=== PATIENT | male | born 1950 | race Caucasian/White ===

== ENCOUNTER 2022-04-15 13:00 | Emergency (ER) | payer OTHER ==
--- OUTSIDE RECORDS SUMMARY | 2022-04-15 13:02 | XMS REPORT | Continuity of Care Document ---
:[address] [facility] t Address [address] [place] [address] Care Team Providers Name Role Phone Ronn_R Attending Clinician Unavailable Ronn_R Admitting Clinician Unavailable Payers Payer Name Policy Type Policy Number Effective Date Expiration Date Carlos durham MEDICARE [place]: [id number] 2008 [employer] 00:00:00 Problems This patient has no known problems. Allergies, Adverse Reactions, Alerts This patient has no known allergies or adverse reactions. Medications This patient has no known medications. Procedures This patient has no known procedures. Encounters Start End Encounter Admission Attending Care Care Encounter Source Date/Time Date/Time Type Type Clinicians Facility Department ID 2020-06-17 2020-06-17 Outpatient Ronn_R [facility] [id number] [place] 02:58:00 02:58:00 [facility] 2017-06-09 2017-06-09 Outpatient Brown_R [facility] [id number] [place] 05:08:00 05:08:00 [facility] Results This patient has no known results.
--- NOTE | 2022-04-15 13:32 | ER ---
Nurse's Notes [facility] Name: Petar Renteria Age: 72 yrs Sex: Male : 1950 Arrival Date: 04/15/2022 Time: 13:02 Bed 6 Private MD: Diagnosis: Hypotension, unspecified;COPD/ Chronic obstructive pulmonary disease, unspecified;Sinus Tachycardia Presentation: 04/15 13:04 Chief complaint: EMS states: Family called 911 for home O2 not working, pt on home hb hospice care. Upon arrival BP 61/38, Hr 130, SpO2 86% on RA, BGL 140. BP 76/48, HR 100 after NS 400 mls to 20g RAC. SPO2 95% on 2LNC. Coronavirus screen: At this time, the client does not indicate any symptoms associated with coronavirus-19. Ebola Screen: No symptoms or risks identified at this time. Risk Assessment: Do you want to hurt yourself or someone else? Patient reports no desire to harm self or others. Onset of symptoms was April 15, 2022. 13:04 Method Of Arrival: EMS: [facility] hb 13:04 Acuity: MAEVE 2 hb 13:39 Initial Sepsis Screen: Does the patient meet any 2 criteria? Mean Arterial Pressure tw2 (MAP) < 65. HR > 90 bpm. Yes Does the patient have a suspected source of infection? No. Patient's initial sepsis screen is negative. Note pt a DNR. Historical: - Allergies: 13:07 Beta-Blockers (Beta-Adrenergic Blocking Agts); hb 13:07 gabapentin; hb 13:07 Cymbalta; hb 13:08 Thorazine; hb - PMHx: 13:07 chronic back pain; Dystonia; head and neck cancer; hb 13:08 COPD; hb - Immunization history:: Adult Immunizations. - Social history:: Smoking status: . Screenin:32 Abuse screen: Denies threats or abuse. Denies injuries from another. Nutritional hb screening: Had unintentional weight loss of 10 pounds or more. Tuberculosis screening: No symptoms or risk factors identified. Fall Risk Ambulatory Aid- Crutches/Cane/Walker (15 pts). Gait- Weak (10 pts.). Assessment: 13:32 General: Appears comfortable, slender, well groomed, malnourished, Behavior is calm, hb cooperative. Pain: Denies pain. Respiratory: No deficits noted. Airway is patent Respiratory effort is even, unlabored, Respiratory pattern is regular, the patient has mild shortness of breath. Vital Signs: 13:04 BP 76 / 50; Pulse 103; Resp 14; Temp 98.1(A); Pulse Ox 95% on 2 lpm NC; Weight 55.79 hb kg; Height 6 ft. 1 in. (185.42 cm); 16:18 BP 104 / 67; Pulse 90; Resp 16; Pulse Ox 95% ; jh6 13:04 Body Mass Index 16.23 (55.79 kg, 185.42 cm) hb ED Course: 13:02 Patient arrived in ED. bd 13:07 Triage completed. hb 13:08 Arm band placed on. hb 13:11 Fredy Trujillo DO is Attending Physician. ms3 13:32 Roya James, RN is Primary Nurse. hb 13:33 Bed in low position. Call light in reach. Side rails up X2. Adult w/ patient. hb 13:33 No provider procedures requiring assistance completed. hb Administered Medications: No medications were administered Medication: 13:40 VIS not applicable for this client. tw2 Outcome: 13:31 Discharge ordered by . ms3 16:21 Discharged to inpatient hospice jh6 16:22 Condition: unchanged 6 16:23 Patient left the ED. [facility] Signatures: Abbey Garcia Roya James, RN RN Damari Cardoza RN RN 2 Fredy Trujillo DO DO ms3 Kimberly Jimenez RN RN 6 Corrections: (The following items were deleted from the chart) 13:10 13:04 BP 76 / 50; Pulse 103bpm; Resp 14bpm; Pulse Ox 95% 2 lpm Nasal Cannula; hb hb
--- NOTE | 2022-04-15 13:32 | EDPHYS ---
Physician Documentation [facility] Name: Petar Renteria Age: 72 yrs Sex: Male : 1950 Arrival Date: 04/15/2022 Time: 13:02 Bed 6 Private MD: ED Physician Fredy Trujillo HPI: 04/15 13:11 This 72 yrs old Male presents to ER via EMS with complaints of oxygen concentrator ms3 broke. 13:11 79-year-old male with past medical history of chronic back pain, dystonia, head neck ms3 cancer, COPD presents via [facility] for hypoxia after his oxygen concentrator quit working overnight. Patient is currently on hospice with a med hospice. Patient's daughter states she is working with hospice to get the concentrator fixed. Patient states he does not have any new pain at this time. Patient's daughter states she would be more comfortable if patient was in inpatient hospice. Patient denies any alleviating or inciting factors. Patient wishes to be a DNR. Patient declines central venous line or vasopressors.. Historical: - Allergies: 13:07 Beta-Blockers (Beta-Adrenergic Blocking Agts); hb 13:07 gabapentin; hb 13:07 Cymbalta; hb 13:08 Thorazine; hb - PMHx: 13:07 chronic back pain; Dystonia; head and neck cancer; hb 13:08 COPD; hb - Immunization history:: Adult Immunizations. - Social history:: Smoking status: . ROS: 13:11 Constitutional: Negative for fever, and chills. Neck: Negative for injury, pain, and ms3 swelling, Cardiovascular: Negative for chest pain, and palpitations. Respiratory: Negative for shortness of breath, cough, wheezing, and pleuritic chest pain, Abdomen/GI: Negative for abdominal pain, nausea, vomiting, diarrhea, and constipation, MS/Extremity: Negative for injury and deformity, Skin: Negative for injury, rash, and discoloration. 13:11 All other systems are negative. Exam: 13:11 Constitutional: This is a well developed, well nourished patient who is awake, alert, ms3 and in no acute distress. Head/Face: Normocephalic, atraumatic. 13:11 Abdomen/GI: Soft, non-tender, with normal bowel sounds. No distension or tympany. No guarding or rebound. No evidence of tenderness throughout. Skin: Warm, dry with normal turgor. Normal color with no rashes, no lesions, and no evidence of cellulitis. Psych: Awake, alert, with orientation to person, place and time. Behavior, mood, and affect are within normal limits. 13:11 ENT: Mouth dry. 13:11 Cardiovascular: Rate: tachycardic, Rhythm: regular. Vital Signs: 13:04 BP 76 / 50; Pulse 103; Resp 14; Temp 98.1(A); Pulse Ox 95% on 2 lpm NC; Weight 55.79 hb kg; Height 6 ft. 1 in. (185.42 cm); 16:18 BP 104 / 67; Pulse 90; Resp 16; Pulse Ox 95% ; jh6 13:04 Body Mass Index 16.23 (55.79 kg, 185.42 cm) hb MDM: 13:11 Patient medically screened. ms3 19:55 Data reviewed: vital signs, nurses notes, and as a result, I will discharge patient. ms3 Counseling: I had a detailed discussion with the patient and/or guardian regarding: the historical points, exam findings, and any diagnostic results supporting the discharge/admit diagnosis, Process for moving into inpatient hospice. ED course: Discussed inpatient versus outpatient hospice with patient and his daughter. They elect for inpatient dialysis. Spoke with social work and patient will be placed in inpatient dialysis after discharge from the emergency department.. Administered Medications: No medications were administered Disposition: 19:57 Chart complete. ms3 Disposition Summary: 04/15/22 13:31 Discharge Ordered Location: Other ms3 Condition: Stable ms3 Diagnosis - Hypotension, unspecified ms3 - COPD/ Chronic obstructive pulmonary disease, unspecified ms3 - Sinus Tachycardia ms3 Forms: - Medication Reconciliation Form ms3 - Thank You Letter ms3 - Antibiotic Education ms3 - Prescription Opioid Use ms3 Signatures: Roya James, RN RN Damari Cardoza RN RN 2 Fredy Trujillo DO DO ms3
[2022-04-15 16:56] VITALS: TEMP 98.1; O2SAT 95
[2022-04-15 16:59] VITALS: BP 104/67
== END 2022-04-15 16:23 | disposition home or self-care (01) ==
LOC: ER 13:00
DX: I95.9 Hypotension, unspecified (principal); J44.9 Chronic obstructive pulmonary disease, unspecified; R00.0 Tachycardia, unspecified; Z88.8 Allergy status to other drugs, medicaments and biological substances; Z85.89 Personal history of malignant neoplasm of other organs and systems

== ENCOUNTER 2022-04-15 16:13 | Inpatient (IN) | payer OTHER ==
--- OUTSIDE RECORDS SUMMARY | 2022-04-15 16:17 | XMS REPORT | Continuity of Care Document ---
:1950 Author Organization [facility] Address [address] [place] [address] Dr. [address] [place] [id number] Care Team Providers Name Role Phone Ronn_R Attending Clinician Unavailable Ronn_R Admitting Clinician Unavailable Payers Payer Name Policy Type Policy Number Effective Date Expiration Date Carlos durham MEDICARE B-[place]: [id number] 2008 [employer] 00:00:00 Problems This patient has no known problems. Allergies, Adverse Reactions, Alerts This patient has no known allergies or adverse reactions. Medications This patient has no known medications. Procedures This patient has no known procedures. Encounters Start End Encounter Admission Attending Care Care Encounter Source Date/Time Date/Time Type Type Clinicians Facility Department ID 2020-06-17 2020-06-17 Outpatient Ronn_R [facility] [id number] [place] 02:58:00 02:58:00 [facility] 2017-06-09 2017-06-09 Outpatient Brown_R [facility] [id number] [place] 05:08:00 05:08:00 [facility] Results This patient has no known results.
[2022-04-15] MEDS ORDERED: MORPHINE 4 MG/ML SYR ONE (17:31)
[2022-04-15] MEDS ORDERED: HYOSCYAMINE SULF 0.125 MG TAB PO PRN (17:52)
[2022-04-15] MEDS ORDERED: ONDANSETRON 4 MG/2 ML VIAL IV PRN (17:52)
[2022-04-15] MEDS ORDERED: BISACODYL 10 MG RECTAL SUPP PR PRN (17:53)
[2022-04-15] MEDS ORDERED: ACETAMINOPHEN 650MG/RECT SUPP PR PRN (17:54)
[2022-04-15] MEDS: MORPHINE 4 MG/ML SYR IV PRN (18:00)
[2022-04-15] MEDS ORDERED: GLYCOPYRROLATE 0.2 MG/ML SYR IV PRN (18:40)
[2022-04-15] MEDS: HYDROCODONE/APAP 10/325 TAB PO PRN (20:43)
[2022-04-15] MEDS: clonazePAM 0.5 MG TAB PO SCH (20:43)
[2022-04-15] MEDS: MIRTAZAPINE 15 MG TAB PO SCH (20:43)
[2022-04-15] MEDS ORDERED: TRIHEXYPHENIDYL 2 MG TAB PO SCH (21:00)
[2022-04-16] MEDS: MORPHINE 4 MG/ML SYR IV PRN ×4 (03:50→21:44)
[2022-04-16] MEDS: clonazePAM 0.5 MG TAB PO SCH ×3 (08:25→20:04)
[2022-04-16] MEDS: HYDROCODONE/APAP 10/325 TAB PO PRN (12:21)
[2022-04-16] MEDS: MIRTAZAPINE 15 MG TAB PO SCH (20:04)
[2022-04-17] MEDS: MORPHINE 4 MG/ML SYR IV PRN ×4 (02:53→21:33)
[2022-04-17] MEDS: HYDROCODONE/APAP 10/325 TAB PO PRN ×2 (04:25→14:22)
[2022-04-17] MEDS: MIDAZOLAM HCL 2 MG/2 ML INJ IV PRN (04:32)
[2022-04-17] MEDS: clonazePAM 0.5 MG TAB PO SCH ×3 (08:07→21:29)
[2022-04-17 17:41] VITALS: BMI 16.0
[2022-04-17] MEDS: MIRTAZAPINE 15 MG TAB PO SCH (21:29)
[2022-04-18] MEDS: MORPHINE 4 MG/ML SYR IV PRN ×4 (08:06→21:45)
[2022-04-18] MEDS: clonazePAM 0.5 MG TAB PO SCH ×3 (08:06→20:27)
[2022-04-18] MEDS: MIRTAZAPINE 15 MG TAB PO SCH (20:28)
[2022-04-19] MEDS: HYDROCODONE/APAP 10/325 TAB PO PRN ×2 (00:19→16:46)
[2022-04-19] MEDS: MORPHINE 4 MG/ML SYR IV PRN ×5 (01:34→21:55)
[2022-04-19] MEDS: MIDAZOLAM HCL 2 MG/2 ML INJ IV PRN (02:42)
[2022-04-19] MEDS: clonazePAM 0.5 MG TAB PO SCH ×3 (09:01→21:55)
[2022-04-19] MEDS: MIRTAZAPINE 15 MG TAB PO SCH (21:55)
[2022-04-20] MEDS: MIDAZOLAM HCL 2 MG/2 ML INJ IV PRN (01:11)
[2022-04-20] MEDS: MORPHINE 4 MG/ML SYR IV PRN ×5 (04:32→20:20)
[2022-04-20] MEDS: clonazePAM 0.5 MG TAB PO SCH ×3 (08:00→20:21)
[2022-04-20] MEDS: MIRTAZAPINE 15 MG TAB PO SCH (20:23)
[2022-04-20 21:02] VITALS: BP 167/89; TEMP 97.4
[2022-04-20 21:31] VITALS: O2SAT 96
[2022-04-21] MEDS: MORPHINE 4 MG/ML SYR IV PRN ×3 (00:28→08:41)
[2022-04-21] MEDS: clonazePAM 0.5 MG TAB PO SCH (08:51)
== END 2022-04-21 10:29 | disposition hospice, home (50) | DRG 951 ==
LOC: ERHOLD 16:13 → 4TH 19:39
PROVIDERS: ADMIT Internal Medicine Geriatric Medicine; ATTEND Internal Medicine Geriatric Medicine
DX: Z51.5 Encounter for palliative care (principal); I95.9 Hypotension, unspecified; J44.9 Chronic obstructive pulmonary disease, unspecified
CPT/HCPCS: J2250

== ENCOUNTER 2022-08-05 10:47 | Emergency (ER) | payer OTHER ==
--- OUTSIDE RECORDS SUMMARY | 2022-08-05 10:50 | XMS REPORT | Continuity of Care Document ---
:1950 Author Organization [facility] Address [address] [place] [address] [address]. [address] [place] [id number] Care Team Providers Name Role Phone Ronn_R Attending Clinician Unavailable Ronn_R Admitting Clinician Unavailable Payers Payer Name Policy Type Policy Number Effective Date Expiration Date Carlos durham MEDICARE B-[place]: [id number] 2008 [employer] 00:00:00 Problems This patient has no known [...]
[2022-08-05] MEDS ORDERED: HYDROMORPHONE HCL 0.5 MG/0.5 ML INJ ONE ×3 (11:40→16:32)
[2022-08-05] MEDS ORDERED: ONDANSETRON 4 MG/2 ML VIAL ONE (11:40)
--- NOTE | 2022-08-05 14:37 | RAD REPORT ---
EXAM DESCRIPTION: [facility] Single View08/05/2022 2:26 pm CLINICAL HISTORY: Cough COMPARISON: 2020 FINDINGS: The lungs are markedly hyperaerated. Patchy opacities are present within right upper lobe and left lung base. Blunting left costophrenic sulcus is chronic probably pleural thickening The heart is normal size IMPRESSION: Marked COPD Patchy opacities right upper lobe and left lung base probably pneumonia
[2022-08-05 14:39] LABS: Absolute Lymphocytes (CBC) 0.7 K/uL (0.7-4.9); Hematocrit 37.5 % (39.6-49.0); Lymphocytes % 8.5 % (15.3-44.8); MCV 86.4 fL (80-100); MPV 8.7 fL (7.6-11.3); RBC Red Blood Cell Count 4.34 M/uL (4.33-5.43)
[2022-08-05 14:55] LABS: Albumin 3.2 g/dL (3.4-5.0); Bilirubin Total 0.7 mg/dL (0.2-1.0); Potassium 3.9 mmol/L (3.5-5.1); Protein, Total 7.2 g/dL (6.4-8.2); Troponin High Sensitivity 6.1 pg/mL (<58.9)
--- NOTE | 2022-08-05 16:47 | EDPHYS ---
Physician Documentation [facility] Name: Petar Renteria Age: 72 yrs Sex: Male : 1950 Arrival Date: 08/05/2022 Time: 11:00 Bed 14 Private MD: ED Physician Dash Stacy HPI: 08/05 11:20 This 72 yrs old Male presents to ER via EMS with complaints of chest pain. rt 11:23 The patient or guardian reports chest pain that is located primarily in the substernal rt area. Onset: chronic. The pain does not radiate. Associated signs and symptoms: The patient has no apparent associated signs or symptoms. The chest pain is described as aching. Duration: The patient or guardian reports a single episode, that is still ongoing. Modifying factors: The symptoms are alleviated by nothing. the symptoms are aggravated by nothing. Patient who was on hospice for adult failure to thrive, dystonia who currently takes morphine for his chronic chest pain presents to the ED with worsening of the chest pain. He states that the need better control of the patient's pain. They refusing EKG, labs at this time stating this is a known chronic issue. Denies other acute complaints at this time. Symptoms are moderate in severity, no other aggravating or alleviating factors.. Historical: - Allergies: 11:04 Beta-Blockers (Beta-Adrenergic Blocking Agts); ph 11:04 Cymbalta; ph 11:04 GABAPENTIN; ph 11:04 thorazine; ph - PMHx: 11:04 chronic back pain; COPD; Dystonia; head and neck cancer; ph - Immunization history:: Adult Immunizations unknown. - Family history:: not pertinent. - Social history:: Smoking status: Patient reports the use of cigarette tobacco products, unknown amount. ROS: 11:23 Constitutional: Negative for fever, chills, and weight loss, Eyes: Negative for injury, rt pain, redness, and discharge, ENT: Negative for injury, pain, and discharge, Respiratory: Negative for shortness of breath, cough, wheezing, and pleuritic chest pain, Abdomen/GI: Negative for abdominal pain, nausea, vomiting, diarrhea, and constipation, Back: Negative for injury and pain, MS/Extremity: Negative for injury and deformity, Skin: Negative for injury, rash, and discoloration, Neuro: Negative for headache, weakness, numbness, tingling, and seizure, Psych: Negative for depression, anxiety, suicide ideation, homicidal ideation, and hallucinations. 11:23 Cardiovascular: Positive for chest pain, Negative for edema. Exam: 11:23 Head/Face: Normocephalic, atraumatic. Eyes: Pupils equal round and reactive to light, rt extra-ocular motions intact. Lids and lashes normal. Conjunctiva and sclera are non-icteric and not injected. Cornea within normal limits. Periorbital areas with no swelling, redness, or edema. ENT: Nares patent. No nasal discharge, no septal abnormalities noted. Tympanic membranes are normal and external auditory canals are clear. Oropharynx with no redness, swelling, or masses, exudates, or evidence of obstruction, uvula midline. Mucous membranes moist. Neck: Trachea midline, no thyromegaly or masses palpated, and no cervical lymphadenopathy. Supple, full range of motion without nuchal rigidity, or vertebral point tenderness. No Meningismus. Chest/axilla: Normal chest wall appearance and motion. Nontender with no deformity. No lesions are appreciated. Cardiovascular: Regular rate and rhythm with a normal S1 and S2. No gallops, murmurs, or rubs. Normal PMI, no JVD. No pulse deficits. Respiratory: Lungs have equal breath sounds bilaterally, clear to auscultation and percussion. No rales, rhonchi or wheezes noted. No increased work of breathing, no retractions or nasal flaring. Abdomen/GI: Soft, non-tender, with normal bowel sounds. No distension or tympany. No guarding or rebound. No evidence of tenderness throughout. Skin: Warm, dry with normal turgor. Normal color with no rashes, no lesions, and no evidence of cellulitis. MS/ Extremity: Pulses equal, no cyanosis. Neurovascular intact. Full, normal range of motion. Neuro: Awake and alert, GCS 15, oriented to person, place, time, and situation. Cranial nerves II-XII grossly intact. Motor strength 5/5 in all extremities. Sensory grossly intact. Cerebellar exam normal. Normal gait. Psych: Awake, alert, with orientation to person, place and time. Behavior, mood, and affect are within normal limits. 11:23 Constitutional: The patient appears thin , Cachectic, chronically ill-appearing 16:55 ECG was reviewed by the Attending Physician. rt Vital Signs: 11:00 BP 145 / 85; Pulse 89; Resp 18; Temp 97.1(TE); Pulse Ox 98% on R/A; ph 11:54 BP 152 / 76; Pulse 113; Resp 35; Pulse Ox 100% ; bp 13:38 BP 145 / 80; Pulse 90; Resp 16; Pulse Ox 100% ; bp 15:30 BP 128 / 71; Pulse 79; Resp 16; Pulse Ox 100% ; bp 16:30 BP 154 / 94; Pulse 88; Resp 16; Pulse Ox 98% ; bp MDM: 11:02 Patient medically screened. rt 16:55 Differential diagnosis: abnormal EKG, acute myocardial infarction, chest wall pain, rt congestive heart failure cholecystitis, pneumonia, pneumothorax, pulmonary embolus. HEART Score: History: Slightly Suspicious (0), ECG: Non specific repolarization disturbance / LBTB / PM (1), Age: > or = 65 years (2), Risk Factors: > or = 3 Risk factors for atherosclerotic disease (2), Troponin: < or = 1 x Normal Limit (0), Total Score = 5. Data reviewed: vital signs, nurses notes, old medical records, lab test result(s), EKG, radiologic studies. ED course: Patient who is on hospice presents to the ED with a worsening chest pain. The patient initially declined laboratory, EKG evaluation. Subsequently, they agreed to have this done, reveals a infiltrate in the lungs, unclear if this is an acute finding, will cover regardless. Discussed the case with patient's hospice was talked to the patient's family multiple times. Initially wanted to have the patient sent to an inpatient hospice facility, they subsequently later changed her mind and wished to take the patient home. Patient to follow-up with this provider.. 08/05 14:03 Order name: CBC with Diff; Complete Time: 15:02 rt 08/05 14:03 Order name: CMP; Complete Time: 15:02 rt 08/05 13:34 Order name: Chest Single View XRAY; Complete Time: 14:40 rt 08/05 14:03 Order name: Troponin High Sensitivity; Complete Time: 15:02 rt 08/05 14:03 Order name: EKG; Complete Time: 14:04 rt 08/05 14:03 Order name: EKG - Nurse/Tech; Complete Time: 14:37 rt EC:55 Rate is 76 beats/min. Rhythm is regular, Normal Sinus Rhythm with No ectopy, Right rt bundle branch block. QRS [place] is Normal. MD interval is normal. QRS interval is normal. QT interval is normal. No Q waves. Administered Medications: 11:45 Drug: Dilaudid (HYDROmorphone) 0.5 mg Route: IVP; Site: right forearm; bp 14:24 Follow up: Response: No adverse reaction; Pain is decreased bp 11:45 Drug: Zofran (Ondansetron) 4 mg Route: IVP; Site: right forearm; bp 14:24 Follow up: Response: No adverse reaction bp 13:38 Drug: Dilaudid (HYDROmorphone) 0.5 mg Route: IVP; Site: right forearm; bp 14:24 Follow up: Response: No adverse reaction bp 16:34 Drug: Dilaudid (HYDROmorphone) 0.5 mg Route: IVP; Site: right forearm; bp Disposition Summary: 08/05/22 16:46 Discharge Ordered Location: Home rt Problem: an ongoing problem rt Symptoms: have improved rt Condition: Stable rt Diagnosis - Chest pain, unspecified rt - Adult failure to thrive rt Followup: rt - With: Private Physician - When: 1 - 2 days - Reason: Discharge Instructions: - Discharge Summary Sheet rt - Nonspecific Chest Pain, Adult rt Forms: - Medication Reconciliation Form rt - Thank You Letter rt - Antibiotic Education rt - Prescription Opioid Use rt Prescriptions: - Doxycycline Monohydrate 100 mg Oral Tablet - take 1 tablet by ORAL route every 12 hours for 10 days; 20 tablet; Refills: 0, rt Product Selection Permitted Signatures: Dispatcher [employer] Yesenia Field RN RN Karel Donald RN RN Dash Burger MD MD rt
--- NOTE | 2022-08-05 16:47 | ER ---
Nurse's Notes [facility] Name: Petar Renteria Age: 72 yrs Sex: Male : 1950 Arrival Date: 08/05/2022 Time: 11:00 Bed 14 Private MD: Diagnosis: Chest pain, unspecified;Adult failure to thrive Presentation: 08/05 11:00 Chief complaint: EMS states: Pt from home, is currently on hospice for end stage COPD ph and "weight loss", lives alone and family is concerned about him being there during the freeze this weekend. Pt c/o SOB upon arrival but was not on oxygen which he uses continuously at home. Coronavirus screen: Vaccine status: Patient reports receiving the 2nd dose of the covid vaccine. Ebola Screen: No symptoms or risks identified at this time. Initial Sepsis Screen: Does the patient meet any 2 criteria? No. Patient's initial sepsis screen is negative. Does the patient have a suspected source of infection? No. Patient's initial sepsis screen is negative. Risk Assessment: Do you want to hurt yourself or someone else? Patient reports no desire to harm self or others. Onset of symptoms was August 05, 2022. 11:00 Method Of Arrival: EMS: [facility] ph 11:00 Acuity: MAEVE 3 ph Triage Assessment: 11:04 General: Appears in no apparent distress. slender, Behavior is cooperative, appropriate ph for age. Neuro: Level of Consciousness is awake, alert, obeys commands, Oriented to person, place, time. Respiratory: Reports shortness of breath placed on oxygen at 3L/min Airway is patent Respiratory effort is even, unlabored. Derm: Skin is fragile, is thin, Skin is pink, warm \\T\\ dry. Historical: - Allergies: 11:04 Beta-Blockers (Beta-Adrenergic Blocking Agts); ph 11:04 Cymbalta; ph 11:04 GABAPENTIN; ph 11:04 thorazine; ph - PMHx: 11:04 chronic back pain; COPD; Dystonia; head and neck cancer; ph - Immunization history:: Adult Immunizations unknown. - Family history:: not pertinent. - Social history:: Smoking status: Patient reports the use of cigarette tobacco products, unknown amount. Screenin:00 [facility] ED Fall Risk Assessment (Adult) History of falling in the last 3 months, bp including since admission No falls in past 3 months (0 pts). Humpty Dumpty Scale Fall Assessment Tool (age< 18yrs) Age 13 years and above (1 pt). Abuse screen: Denies threats or abuse. Denies injuries from another. Nutritional screening: No deficits noted. Tuberculosis screening: No symptoms or risk factors identified. Fall Risk No fall in past 12 months (0 pts). No secondary diagnosis (0 pts). IV access (20 points). Ambulatory Aid- None/Bed Rest/Nurse Assist (0 pts). Gait- Weak (10 pts.). Mental Status- Oriented to own ability (0 pts). Total Abreu Fall Scale indicates Low Risk Score (25-44 pts). Fall prevention measures have been instituted. Side Rails Up X 2 Placed close to Nursing Station Frequent Obs/Assesments occuring As available Patient and Family Educated on Fall Prevention Program and strategies. Assessment: 11:00 General: SEE TRIAGE NOTE. bp 11:54 Reassessment: LEFT MESSAGE FOR AMINAH TRONCOSO WITH [facility] ([phone]) TO DISCUSS bp PAIN MEDICATION AND RESPITE CARE. 13:39 Reassessment: [facility] CONTACTED, AWAITING RESPONSE FOR DISPO. bp 15:45 Reassessment: No changes from previously documented assessment. Patient and/or family bp updated on plan of care and expected duration. Pain level reassessed. 16:37 Reassessment: FAMILY NOW REQUESTING DC HOME. NOTIFIED. bp Vital Signs: 11:00 BP 145 / 85; Pulse 89; Resp 18; Temp 97.1(TE); Pulse Ox 98% on R/A; ph 11:54 BP 152 / 76; Pulse 113; Resp 35; Pulse Ox 100% ; bp 13:38 BP 145 / 80; Pulse 90; Resp 16; Pulse Ox 100% ; bp 15:30 BP 128 / 71; Pulse 79; Resp 16; Pulse Ox 100% ; bp 16:30 BP 154 / 94; Pulse 88; Resp 16; Pulse Ox 98% ; bp ED Course: 11:00 Patient arrived in ED. ph 11:00 Dash Stacy MD is Attending Physician. rt 11:00 Patient has correct armband on for positive identification. Bed in low position. Call bp light in reach. Side rails up X2. Adult w/ patient. 11:03 Akash, Karel, RN is Primary Nurse. bp 11:04 Triage completed. ph 11:05 Arm band placed on Patient placed in an exam room. ph 11:51 Inserted saline lock: 20 gauge in right forearm, using aseptic technique. rs5 14:28 Chest Single View XRAY In Process Unspecified. EDMS Administered Medications: 11:45 Drug: Dilaudid (HYDROmorphone) 0.5 mg Route: IVP; Site: right forearm; bp 14:24 Follow up: Response: No adverse reaction; Pain is decreased bp 11:45 Drug: Zofran (Ondansetron) 4 mg Route: IVP; Site: right forearm; bp 14:24 Follow up: Response: No adverse reaction bp 13:38 Drug: Dilaudid (HYDROmorphone) 0.5 mg Route: IVP; Site: right forearm; bp 14:24 Follow up: Response: No adverse reaction bp 16:34 Drug: Dilaudid (HYDROmorphone) 0.5 mg Route: IVP; Site: right forearm; bp Medication: 11:00 VIS not applicable for this client. bp Outcome: 16:46 Discharge ordered by . rt 17:52 Patient left the ED. bp Signatures: Dispatcher [employer] EDMS Yesenia Gonzáles RN RN ph Karel Bustos, ABA RN bp Dash Stacy MD MD rt Norm Espinosa rs5
[2022-08-05 18:06] VITALS: TEMP 97.1
[2022-08-05 18:24] VITALS: BP 154/94; O2SAT 98
== END 2022-08-05 17:52 | disposition home or self-care (01) ==
LOC: ER 10:47
DX: R07.89 Other chest pain (principal); R62.7 Adult failure to thrive; J44.9 Chronic obstructive pulmonary disease, unspecified; Z72.0 Tobacco use; Z88.8 Allergy status to other drugs, medicaments and biological substances
CPT/HCPCS: 85025; 36415; 84484; 80053; 71045; J1170 ×3; J2405; 93005

== ENCOUNTER 2022-08-11 13:50 | Emergency (ER) | payer OTHER ==
--- OUTSIDE RECORDS SUMMARY | 2022-08-11 13:53 | XMS REPORT | Continuity of Care Document ---
:1950 Author Organization [facility] Address [address] [place] [address] Dr. [address] [place] [id number] Care Team Providers Name Role Phone Ronn_R Attending Clinician Unavailable Ronn_R Admitting Clinician Unavailable Payers Payer Name Policy Type Policy Number Effective Date Expiration Date Carlos durham MEDICARE [place]: [id number] 2008 [employer] 00:00:00 Problems This patient has no known [...]
[2022-08-11 14:34] LABS: Absolute Lymphocytes (CBC) 0.8 K/uL (0.7-4.9); Hematocrit 29.8 % (39.6-49.0); Lymphocytes % 5.6 % (15.3-44.8); MCV 85.6 fL (80-100); MPV 9.3 fL (7.6-11.3); RBC Red Blood Cell Count 3.48 M/uL (4.33-5.43)
[2022-08-11] MEDS ORDERED: TDAP (DIPHTH,PERTUSS(ACELL),TET VAC) 0.5 ML VIAL IMVAC ONE (14:45)
[2022-08-11] MEDS ORDERED: LIDOCAINE 1% MPF 5 ML VIAL ONE (14:45)
[2022-08-11] MEDS ORDERED: BUPIVACAINE 0.5% PF 10 ML VIAL ONE (14:45)
[2022-08-11] MEDS ORDERED: ONDANSETRON 4 MG/2 ML VIAL ONE (14:45)
[2022-08-11 14:46] LABS: Protime INR 1.3
[2022-08-11 14:49] LABS: SARS-CoV-2 Antigen Rapid Res Negative (Negative)
[2022-08-11 15:01] LABS: ALT/SGPT 13 U/L (16-61); AST/SGOT 15 U/L (15-37); Albumin 3.1 g/dL (3.4-5.0); Alkaline Phosphatase 76 U/L (45-117); BUN Blood Urea Nitrogen 12 mg/dL (7-18); Bicarbonate 30 mmol/L (21-32); Bilirubin Direct 0.2 mg/dL (0-0.2); Bilirubin Total 0.6 mg/dL (0.2-1.0); Glomerular Filtration Rate 64 ml/min (=/>90); Glucose Level 150 mg/dL (74-106); Potassium 3.8 mmol/L (3.5-5.1); Protein, Total 6.8 g/dL (6.4-8.2); Sodium Level 133 mmol/L (136-145)
[2022-08-11] MEDS ORDERED: NA CHLORIDE 0.9% 1,000 ML ONE (15:11)
[2022-08-11] MEDS ORDERED: NA CHLORIDE 0.9% 500 ML ONE (17:15)
--- NOTE | 2022-08-11 17:59 | EDPHYS ---
Physician Documentation [facility] Name: Petar Renteria Age: 72 yrs Sex: Male : 1950 Arrival Date: 08/11/2022 Time: 13:51 Bed 20 Private MD: ED Physician Colleen Jorge HPI: 08/11 14:01 This 72 yrs old Male presents to ER via EMS with complaints of Suicidal Ideation. pm1 14:01 The patient presents to the emergency department with a history of a suicide gesture, pm1 cut left forearm, suicide ideation. Onset: The symptoms/episode began/occurred this morning, at 07:00. 14:01 Past psychiatric history: the patient has not had a prior suicide gesture, the patient pm1 does not have a previous inpatient psychiatric history. Associated signs and symptoms: The patient has no apparent associated signs or symptoms, Pertinent positives; chronic pain that patient attributes to his dystonia, Pertinent negatives: abdominal pain, chest pain, shortness of breath. Severity of symptoms: in the emergency department the symptoms are unchanged. The patient has not experienced similar symptoms in the past. Patient seen in the ER 6 days ago and was diagnosed with pneumonia and is currently taking doxycycline BID. Patient cut his left forearm with the intention of trying to kill himself. Patient was tired of the insomnia that was related to his dystonia. Has had dystonia for multiple years. Patient is frustrated with not knowing the cause for his dystonia. Patient cut his left forearm around 7:00 this morning. Patient wrote a goodbye note. Patient was found by his daughter with him his left arm bleeding into a trash bag. Historical: - Allergies: 13:52 Beta-Blockers (Beta-Adrenergic Blocking Agts); ss 13:52 Cymbalta; ss 13:52 GABAPENTIN; ss 13:52 thorazine; ss - Home Meds: 16:46 morphine 60 mg Oral TR12 1 tab every 12 hours [Active]; morphine 20 mg/5 mL (4 mg/mL) jl7 Oral soln 5 mL every 4 hours [Active]; - PMHx: 13:52 chronic back pain; COPD; Dystonia; head and neck cancer; ss - Immunization history:: Last tetanus immunization: unknown. - Social history:: Smoking status: Patient reports the use of cigarette tobacco products, denies chronic smoking, but will smoke occasionally, Patient uses street drugs, marijuana, "rarely", Patient/guardian denies using alcohol. ROS: 14:01 Constitutional: Negative for fever, chills, and weight loss, Cardiovascular: Negative pm1 for chest pain, palpitations, and edema, Respiratory: Negative for shortness of breath, cough, wheezing, and pleuritic chest pain, Abdomen/GI: Negative for abdominal pain, nausea, vomiting, diarrhea, and constipation, Back: Negative for injury and pain, MS/Extremity: Negative for injury and deformity, Neuro: Negative for headache, weakness, numbness, tingling, and seizure. 14:01 Skin: Positive for laceration(s), of the palmar aspect of left forearm. 14:01 Psych: Positive for insomnia, suicide gesture, suicidal ideation. 14:01 All other systems are negative. Exam: 14:01 Constitutional: This is a well developed, well nourished patient who is awake, alert, pm1 and in no acute distress. Head/Face: Normocephalic, atraumatic. 14:01 Back: No spinal tenderness. No costovertebral tenderness. Full range of motion. 14:01 Eyes: Exam is negative for acute changes, Periorbital structures: no acute changes, Extraocular movements: no acute changes, Conjunctiva: no acute changes, no injection. 14:01 ENT: Exam is negative for acute changes, Mouth: no acute changes, Lips: normal, moist, Oral mucosa: normal, pink and intact, moist. 14:01 Cardiovascular: Rate: tachycardic, actual rate is 124 bpm, Rhythm: regular, Pulses: no pulse deficits are appreciated, Pulses are 2+ in left radial artery. 14:01 Respiratory: Exam negative for acute changes, respiratory distress, shortness of breath. 14:01 Abdomen/GI: Inspection: abdomen appears normal, Palpation: abdomen is soft and non-tender, in all quadrants. 14:01 Skin: Appearance: normal except for affected area, injury, laceration(s), the wound is approximately 7 cm(s), with a depth of 0.3 cm(s), of the palmar aspect of left forearm, that can be described as clean, no foreign body, without bleeding, 5 cm linear laceration with 2 shallow near perpendicular lacerations from central area of main laceration. 3 mm at the deepest for laceration. 14:01 Neuro: Exam negative for acute changes, Orientation: is normal, Mentation: is normal, Motor: moves all fours, Sensation: no obvious gross deficits. 14:01 Psych: Behavior/mood is cooperative, Affect is calm, Oriented to person, place, time, Delusions/hallucinations are not present. Vital Signs: 14:15 BP 103 / 70; Pulse 125; Resp 14; Pulse Ox 100% on 4 lpm NC; jl7 14:18 BP 101 / 68; Pulse 123; Resp 15; Temp 97.3; Pulse Ox 95% on 4 lpm NC; Weight 45.36 kg; jl7 Height 5 ft. 8 in. (172.72 cm); 15:30 BP 124 / 71; Pulse 97; Resp 15; Pulse Ox 92% on 4 lpm NC; jl7 16:15 BP 129 / 63; Pulse 107; Resp 15; Pulse Ox 92% on 4 lpm NC; jl7 17:58 BP 129 / 78; Pulse 89; Resp 15; Pulse Ox 100% on 2 lpm NC; jl7 19:15 BP 129 / 65; Pulse 95; Resp 18 S; Pulse Ox 100% on 2 lpm NC; ha1 20:15 BP 125 / 68; Pulse 97; Resp 18 S; Pulse Ox 100% on R/A; ha1 08/12 00:15 BP 125 / 67; Pulse 94; Resp 16 S; Pulse Ox 99% on 2 lpm NC; ha1 02:15 BP 130 / 69; Pulse 90; Resp 16 S; Pulse Ox 99% on 2 lpm NC; ha1 03:15 BP 135 / 70; Pulse 82; Resp 18; Pulse Ox 99% on 2 lpm NC; ha1 04:15 BP 130 / 64; Pulse 80; Resp 18; Pulse Ox 99% ; ha1 07:00 BP 120 / 64; Pulse 99; Resp 18 S; Pulse Ox 100% on R/A; ha1 10:06 BP 140 / 75; Pulse 76; Resp 12; Pulse Ox 100% on 2 lpm NC; mb9 12:19 BP 140 / 65; Pulse 89; Resp 12; Pulse Ox 100% 2 lpm ; mb9 14:36 BP 130 / 59; Pulse 86; Resp 13; Pulse Ox 100% on 2 lpm NC; mb9 15:21 BP 130 / 56; Pulse 81; Resp 13; Pulse Ox 100% on 2 lpm NC; mb9 17:39 BP 132 / 65; Pulse 97; Resp 16; Pulse Ox 100% on 2 lpm NC; mb9 19:20 BP 132 / 64; Pulse 82; Resp 16 S; Pulse Ox 100% on R/A; ha1 19:45 Pulse 77; Resp 18 S; Pulse Ox 100% on R/A; ha1 20:20 BP 131 / 60; Pulse 70; Resp 18 S; Pulse Ox 99% on R/A; ha1 08/13 00:20 BP 122 / 62; Pulse 77; Resp 16 S; Pulse Ox 100% on R/A; ha1 02:20 BP 128 / ???; Pulse 78; Resp 18 S; Pulse Ox 100% on R/A; ha1 03:20 BP 129 / 65; Pulse 77; Resp 18 S; Pulse Ox 100% on R/A; ha1 04:20 BP 128 / 64; Pulse 75; Resp 17 S; Pulse Ox 100% on R/A; ha1 05:00 BP 124 / 59; Pulse 81; Resp 18 S; Pulse Ox 100% on R/A; ha1 05:30 BP 122 / 62; Pulse 78; Resp 16; Pulse Ox 100% on R/A; ha1 08:00 BP 143 / 55; Pulse 69; Resp 18; Temp 98; Pulse Ox 100% on R/A; db 12:00 BP 111 / 61; Pulse 91; Resp 18; Pulse Ox 99% on 2 lpm NC; db 12:29 BP 111 / 61; Pulse 92; Resp 18; Pulse Ox 100% on 2 lpm NC; Pain 8/10; ld1 16:38 Pain 10/10; db 18:47 BP 110 / 68; Pulse 88; Resp 16; Temp 98; Pulse Ox 100% on R/A; db 08/11 14:18 Body Mass Index 15.20 (45.36 kg, 172.72 cm) jl7 Laceration: 08/11 16:41 Wound Repair of 7cm ( 2.8in ) subcutaneous laceration to dorsal aspect of left forearm. pm1 Irregularly shaped.. Distal neuro/vascular/tendon intact. Anesthesia: Local anesthetic administered with 5 mls of Lido/Marcaine. Wound prep: Extensive cleansing with hibiclenz by fl, Wound irrigation with saline by me, Wound explored extensively, Copious irrigation. Skin closed with 8 4-0 Prolene using simple sutures and sterile technique. Dressed with 4x4's. Patient tolerated well. MDM: 13:54 Patient medically screened. pm1 16:50 Counseling: I had a detailed discussion with the patient and/or guardian regarding: the pm1 historical points, exam findings, and any diagnostic results supporting the discharge/admit diagnosis, lab results, the need to transfer to another facility, [facility] does not immediately have the required specialist. 17:56 Data reviewed: vital signs. Data interpreted: Pulse oximetry: on 4L(s) per nasal pm1 canula, is 95 %. Interpretation: acceptable for history COPD. 08/12 11:06 ED course: Patient was evaluated by hospice nurse with plans for having the patient pm1 being discharged to a long-term with hospice care to provide 24-hour sitter coverage. Roger nurse, Ritika has been in contact with the patient's family to plan this disposition. I will contact [facility] to evaluate the patient to provide psychiatric care if patient is to be discharged to a long-term/hospice care.. 16:18 ED course: Patient was evaluated by long-term staff, [facility]. They came to pm1 evaluate the patient because they were contacted by [facility], hospice, with a plan to take the patient and provide 24 hour sitter coverage. Discussed patient psychiatric issue, suicidal ideation and gesture, with the staff and they report that psychiatric services is available at [facility] for the patient. 08/13 15:43 ED course: Pt to be discharged to long-term at [facility] with Hospice care arranged sd2 by Social Work. MARI has at time of discharge. Pt will have a 1:1 sitter for safety. . 08/11 13:58 Order name: Acetaminophen; Complete Time: 15:10 pm1 08/11 13:58 Order name: Basic Metabolic Panel; Complete Time: 15:10 pm1 08/11 13:58 Order name: CBC with Diff; Complete Time: 21:15 pm1 08/11 13:58 Order name: ETOH Level; Complete Time: 14:59 pm1 08/11 13:58 Order name: Hepatic Function; Complete Time: 15:10 pm1 08/11 13:58 Order name: PT-INR; Complete Time: 14:50 pm1 08/11 13:58 Order name: Ptt, Activated; Complete Time: 14:50 pm1 08/11 13:58 Order name: Salicylate; Complete Time: 15:01 pm1 08/11 13:58 Order name: Urine Drug Screen; Complete Time: 09:26 pm1 08/11 13:59 Order name: SARS RAPID; Complete Time: 14:50 pm1 08/11 19:05 Order name: Hemoglobin; Complete Time: 03:02 pm1 08/11 20:24 Order name: CBC Smear Scan; Complete Time: 21:15 EDMS 08/12 06:45 Order name: CBC with Diff; Complete Time: 08:07 rn 08/12 22:56 Order name: Urine Dipstick-Ancillary; Complete Time: 09:26 EDMS 08/11 13:58 Order name: EKG; Complete Time: 13:59 pm1 08/11 19:05 Order name: Chest Single View XRAY; Complete Time: 21:15 pm1 08/11 13:58 Order name: EKG - Nurse/Tech; Complete Time: 18:54 pm1 08/11 13:58 Order name: IV Saline Lock; Complete Time: 14:27 pm1 08/11 13:58 Order name: Labs collected and sent; Complete Time: 16:37 pm1 08/11 13:58 Order name: Suicide Precautions; Complete Time: 16:37 pm1 08/11 13:58 Order name: Suicide Screening ([place]); Complete Time: 18:54 pm1 08/11 13:58 Order name: Urine Dipstick-Ancillary (obtain specimen); Complete Time: 00:22 pm1 08/11 13:59 Order name: Dressing - Wound; Complete Time: 16:38 pm1 08/11 13:59 Order name: Gloves, Sterile; Complete Time: 15:12 pm1 08/11 13:59 Order name: Prolene, Sutures; Complete Time: 16:38 pm1 08/11 13:59 Order name: Setup Suture Tray; Complete Time: 15:12 pm1 08/11 16:02 Order name: Diet Finger Food; Complete Time: 16:02 kr3 08/12 06:40 Order name: Diet Finger Food; Complete Time: 06:41 ha1 08/13 07:21 Order name: EKG Electrocardiogram EDWY 08/13 12:41 Order name: Diet Regular; Complete Time: 12:41 ss EC/27 18:53 Rate is 100 beats/min. Rhythm is regular, Normal Sinus Rhythm with No ectopy. QRS [place] pm1 is Normal. [place] interval is normal. QRS interval is normal. QT interval is normal. No Q waves. T waves are Normal. No ST changes noted. Clinical impression: Normal ECG. Administered Medications: 15:01 CANCELLED (Physician Discretion): NS 0.9% 500 ml IV at bolus once pm1 15:12 Drug: NS 0.9% 1000 ml Route: IV; Rate: 1 bolus; Site: right forearm; jl7 16:30 Follow up: Response: No adverse reaction; IV Status: Completed infusion; IV Intake: jl7 1000ml 16:25 Drug: Bupivacaine (0.5 %) 10 ml {Note: administered by ERP.} Volume: 10 ml; Route: jl7 Infiltration; 18:34 Follow up: Response: No adverse reaction [facility] 16:25 Drug: Lidocaine (1 %) 5 ml {Note: administered by ERP.} Volume: 5 ml; Route: jl7 Infiltration; 18:34 Follow up: Response: No adverse reaction [facility] 17:01 Drug: Tetanus-Diphtheria Toxoid Adult 0.5 ml {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 Exp: jl7 05/09/2023. Lot #: [id number]. } Route: IM; Site: left deltoid; 17:21 Follow up: Response: No adverse reaction [facility] 17:21 Drug: NS 0.9% 500 ml Route: IV; Rate: bolus; Site: right forearm; jl7 18:34 Follow up: Response: No adverse reaction; IV Status: Completed infusion; IV Intake: jl7 500ml 08/12 14:24 Drug: morphine 1 mg Route: IVP; Infused Over: 2 mins; Site: right forearm; mb9 19:16 Follow up: Response: No adverse reaction mb9 19:24 Drug: morphine 1 mg Route: IVP; Infused Over: 2 mins; Site: right forearm; ha1 19:45 Follow up: Response: No adverse reaction; Pain is decreased; RASS: Alert and Calm (0) ha1 08/13 00:15 Drug: Zofran (Ondansetron) 4 mg Route: IVP; Site: right forearm; ha1 00:17 Drug: morphine 2 mg Route: IVP; Infused Over: 4 mins; Site: right forearm; ha1 00:42 Follow up: Response: No adverse reaction; Pain is decreased; RASS: Alert and Calm (0) ha1 04:59 Drug: morphine 2 mg Route: IVP; Infused Over: 4 mins; Site: right forearm; ha1 09:46 Follow up: Response: No adverse reaction db 09:46 Drug: morphine 2 mg Route: IVP; Infused Over: 4 mins; Site: right forearm; db 18:50 Follow up: Response: No adverse reaction db 12:29 Drug: morphine 2 mg Route: IVP; Infused Over: 4 mins; Site: right wrist; ld1 18:50 Follow up: Response: No adverse reaction db 16:38 Drug: morphine 15 mg Route: PO; db 18:50 Follow up: Response: No adverse reaction db Disposition Summary: 08/13/22 15:41 Discharge [facility]dered Location: [facility] sd2 Problem: new(08/13/22 15:41) sd2 Symptoms: are unchanged(08/13/22 15:41) sd2 Condition: Stable(08/13/22 15:41) sd2 Diagnosis - Suicidal ideations(08/13/22 15:41) sd2 - Laceration without foreign body of left forearm(08/13/22 15:41) sd2 Followup: sd2 - With: Private Physician - When: 2 - 3 days - Reason: Recheck today's complaints, Continuance of care, Re-evaluation by your physician Discharge Instructions: - Discharge Summary Sheet sd2 - Suicidal Feelings: How to Help Yourself sd2 - Helping Someone Who is Suicidal sd2 Forms: - Medication Reconciliation Form sd2 - Thank You Letter sd2 - Antibiotic Education sd2 - Prescription Opioid Use sd2 Addendum: 08/17/2022 18:30 STAFF ATTESTATION: The patient's history, exam findings, diagnostics and a summary of s d2 any interventions or procedures was reviewed in detail with the OSEAS. I personally interviewed and examined the patient, and I have reviewed and agree with the HPI and exam. My personal exam shows a chronically ill appearing male resting comfortably in NAD. See my ED course note for further details. I confirm the diagnosis as documented by the OSEAS. I have reviewed and agree with the care plan articulated in the disposition section. Alisia Steinberg MD. Signatures: Dispatcher [employer] EDMS Lee Patel MD MD rn Smirch, Shelby, RN RN ss Pérez Garibay, IT APPLICATION ADMINISTRATOR IT APPLICATION ADMINISTRATOR pm1 Willie Oseguera RN RN jl7 Sade Brandt RN RN ld1 Colleen Jorge MD MD sp3 Alisia Steinberg MD MD sd2 Janet Brown, RN RN ha1 Ritika Berman RN RN Brianne Dawson, RN RN mb9 Corrections: (The following items were deleted from the chart) 08/11 15:01 14:59 NS 0.9% 500 ml IV at bolus once ordered. pm1 pm1 16:49 14:01 The patient presents to the emergency department with a history of a suicide pm1 gesture, where the patient cut wrists, suicide ideation, pm1 08/13 15:41 08/11 17:58 MD pm1 sd2 08/13 15:41 08/11 17:58 Psych Facility pm1 sd2 08/13 15:41 08/11 17:58 Higher level of care pm1 sd2 08/13 15:41 08/11 17:58 Stable pm1 sd2 08/13 15:41 08/11 17:58 new pm1 sd2 08/13 15:41 08/11 17:58 have improved pm1 sd2 08/13 15:41 08/11 17:58 Laceration without foreign body of left forearm pm1 sd2 08/13 15:41 08/11 17:58 Suicidal ideations pm1 sd2
--- NOTE | 2022-08-11 17:59 | ER ---
Nurse's Notes [facility] Name: Petar Renteria Age: 72 yrs Sex: Male : 1950 Arrival Date: 08/11/2022 Time: 13:51 Bed 20 Private MD: Diagnosis: Suicidal ideations;Laceration without foreign body of left forearm Presentation: 08/11 14:18 Chief complaint: EMS states: Toned out for attempted suicide by cutting left FA at 0600 jl7 this morning; approximately 1/2 gallon blood loss; found by daughter. Coronavirus screen: Vaccine status: Patient reports receiving the 2nd dose of the covid vaccine. At this time, the client does not indicate any symptoms associated with coronavirus-19. Ebola Screen: No symptoms or risks identified at this time. Initial Sepsis Screen: Does the patient meet any 2 criteria? No. Patient's initial sepsis screen is negative. Does the patient have a suspected source of infection? No. Patient's initial sepsis screen is negative. Risk Assessment: Do you want to hurt yourself or someone else? Patient reports no desire to harm self or others. Onset of symptoms was August 11, 2022. Care prior to arrival: None. 14:18 Method Of Arrival: EMS: [facility] 7 14:18 Acuity: MAEVE 2 jl7 Triage Assessment: 14:18 General: Appears in no apparent distress. uncomfortable, cachectic, Behavior is jl7 cooperative, flat. Pain: Complains of pain in Neck, bilateral legs, all over Pain currently is 9 out of 10 on a pain scale. Neuro: Level of Consciousness is awake, alert, obeys commands, Oriented to person, place, time, situation. Cardiovascular: Patient's skin is warm and dry. Respiratory: Airway is patent Respiratory effort is even, unlabored, Respiratory pattern is regular, symmetrical. Derm: Skin is dry, Skin is pale, Skin temperature is warm. Historical: - Allergies: 13:52 Beta-Blockers (Beta-Adrenergic Blocking Agts); ss 13:52 Cymbalta; ss 13:52 GABAPENTIN; ss 13:52 thorazine; ss - Home Meds: 16:46 morphine 60 mg Oral TR12 1 tab every 12 hours [Active]; morphine 20 mg/5 mL (4 mg/mL) jl7 Oral soln 5 mL every 4 hours [Active]; - PMHx: 13:52 chronic back pain; COPD; Dystonia; head and neck cancer; ss - Immunization history:: Last tetanus immunization: unknown. - Social history:: Smoking status: Patient reports the use of cigarette tobacco products, denies chronic smoking, but will smoke occasionally, Patient uses street drugs, marijuana, "rarely", Patient/guardian denies using alcohol. Screenin:15 [facility] ED Fall Risk Assessment (Adult) History of falling in the last 3 months, jl7 including since admission No falls in past 3 months (0 pts) Confusion or Disorientation No (0 pts) Intoxicated or Sedated No (0 pts) Impaired Gait No (0 pts) Mobility Assist Device Used No (0 pt) Altered Elimination No (0 pt) Score/Fall Risk Level 0 - 2 = Low Risk. Nutritional screening: Had unintentional weight loss of 10 pounds or more. 16:14 Abuse screen: Denies injuries from another. Tuberculosis screening: Never had TB. ss Assessment: 02:15 Reassessment: eyes closed. Respiratory: Airway is patent Respiratory effort is even, ha1 unlabored, Respiratory pattern is regular, symmetrical. 03:15 Reassessment: eyes closed. ha1 14:00 Reassessment: EMS with suicide note on paper, written by pt, that reads "08-11-2022 : 3 jl7 AM : I've had way too much pain and 1 hour at the end is much better than 5 days of suffocation pain : love you all". 14:15 Reassessment: Pt reports unable to provide urine sample at this time. jl7 14:30 Reassessment: Pt A\\T\\Ox4, calm \\T\\ cooperative. Left arm with large amount of dried blood, jl 7 soaking with peroxide and NS. 15:00 Reassessment: Pt reports unable to provide urine sample at this time. jl7 16:14 Reassessment: CLAUDIA Ortez at bedside performing laceration care. ss 16:30 Reassessment: Pt reports unable to provide urine sample at this time. jl7 17:45 Reassessment: Pt laying in bed with eyes closed, respirations even and unlabored. jl7 18:15 Reassessment: Pt reports unable to provide urine sample at this time. jl7 18:56 Reassessment: Daughter, Lisa Spears, . jl7 19:15 General: Appears comfortable, Behavior is calm, cooperative. Pain: Denies pain. Neuro: ha1 Level of Consciousness is awake, alert, obeys commands, Oriented to person, place, time, situation. Cardiovascular: Patient's skin is warm and dry. Respiratory: Airway is patent Trachea midline Respiratory effort is even, unlabored, Respiratory pattern is regular, symmetrical. Derm: Skin Skin is dry, Skin is pale. Musculoskeletal: Injury Description: Laceration sustained to palmar aspect of left forearm is clean, 2.6 to 7.5 cm long, not bleeding. 20:15 Reassessment: Patient and/or family updated on plan of care and expected duration. Pain ha1 level reassessed. Patient is alert, oriented x 3, equal unlabored respirations, skin warm/dry/pink. Patient denies pain at this time. 21:15 Reassessment: Patient and/or family updated on plan of care and expected duration. Pain ha1 level reassessed. Patient is alert, oriented x 3, equal unlabored respirations, skin warm/dry/pink. Patient denies pain at this time. 22:15 Reassessment: Patient and/or family updated on plan of care and expected duration. Pain ha1 level reassessed. Patient is alert, oriented x 3, equal unlabored respirations, skin warm/dry/pink. Patient denies pain at this time. 23:15 Reassessment: Patient and/or family updated on plan of care and expected duration. Pain ha1 level reassessed. eyes closed. Patient denies pain at this time. 23:15 Respiratory: Respiratory effort is even, unlabored, Respiratory pattern is regular, ha1 symmetrical. 08/12 00:15 Reassessment: watching TV. ha1 00:15 Respiratory: Airway is patent Respiratory effort is even, unlabored, Respiratory ha1 pattern is regular, symmetrical. 01:15 Reassessment: eyes closed. ha1 02:15 Respiratory: Airway is patent Respiratory effort is even, unlabored, Respiratory ha1 pattern is regular, symmetrical. 03:15 Respiratory: Airway is patent Respiratory effort is even, unlabored, Respiratory ha1 pattern is regular, symmetrical. 04:15 Reassessment: Patient and/or family updated on plan of care and expected duration. Pain ph level reassessed. eyes closed. 04:15 Respiratory: Respiratory effort is even, unlabored, Respiratory pattern is regular, ha1 symmetrical. 05:15 Reassessment: Patient and/or family updated on plan of care and expected duration. Pain ph level reassessed. eyes closed. 05:15 Respiratory: Respiratory effort is even, unlabored, Respiratory pattern is regular, ph symmetrical. 06:15 Reassessment: Patient and/or family updated on plan of care and expected duration. Pain ha1 level reassessed. Patient is alert, oriented x 3, equal unlabored respirations, skin warm/dry/pink. 07:15 Reassessment: Pt AAOx4. Airway patent. Respirations are even and unlabored. Skin is mb9 pale, cool, and dry. Suicide precautions placed. Pt denies any suicidal ideation. 08:15 Reassessment: Pt AAOx4. Airway patent. Respirations are even and unlabored. Skin is mb9 pale, cool, and dry. Suicide precautions placed. Pt denies any suicidal ideation. Pt refused meal and fluid. 09:15 Reassessment: Pt AAOx4. Airway patent. Respirations are even and unlabored. Skin is mb9 pale, cool, and dry. Suicide precautions placed. Pt denies any suicidal ideation. 09:56 Reassessment: [facility] at bedside. mb9 10:15 Reassessment: Pt AAOx4. Airway patent. Respirations are even and unlabored. Skin is mb9 cool, pale and dry. Pt denies any suicidal ideation. Sitter present. Pt states he is in pain. PUMP INSTALLATION AND SERVICER, Pérez, notified. No new orders at this time. 11:15 Reassessment: Pt AAOx4. Airway patent. Respirations are even and unlabored. Skin is mb9 cool, pale and dry. Pt denies any suicidal ideation. Sitter present. Pt states he is in pain. PUMP INSTALLATION AND SERVICERPérez, notified. No new orders at this time. 11:50 Reassessment: [place] [facility] at bedside. mb9 12:15 Reassessment: Pt AAOx4. Airway patent. Respirations are even and unlabored. Skin is mb9 cool, pale and dry. Pt denies any suicidal ideation. Sitter present. Suicidal precautions in place. 13:15 Reassessment: Pt AAOx4. Airway patent. Respirations are even and unlabored. Skin is mb9 cool, pale and dry. Pt denies any suicidal ideation. Sitter present. Suicidal precautions in place. 14:15 Reassessment: Pt AAOx4. Airway patent. Respirations are even and unlabored. Skin is mb9 cool, pale and dry. Pt denies any suicidal ideation. Sitter present. Suicidal precautions in place. 15:15 Reassessment: pt currently sleeping. Airway is patent. Respirations are even and mb9 unlabored. Skin is cool, pale, and dry. Rhythm is regular. Sitter at bedside. 16:15 Reassessment: pt currently sleeping. Airway is patent. Respirations are even and mb9 unlabored. Skin is cool, pale, and dry. Rhythm is regular. 17:15 Reassessment: pt currently sleeping. Airway is patent. Respirations are even and mb9 unlabored. Skin is cool, pale, and dry. Rhythm is regular. Sitter at bedside. 18:15 Reassessment: Pt AAOx4. Airway patent. Respirations are even and unlabored. Skin is mb9 cool, pale and dry. Pt denies any suicidal ideation. Suicidal precautions in place. 19:00 Reassessment: Pt AAOx4. Airway patent. Respirations are even and unlabored. Skin is mb9 cool, pale and dry. Pt denies any suicidal ideation. Sitter present. Suicidal precautions in place. 19:00 Reassessment: Gave report to ABA Butts. mb9 19:20 General: Appears comfortable, Behavior is calm, cooperative. Pain: Complains of pain in ha1 generalized Pain currently is 7 out of 10 on a pain scale. Is continuous, Alleviated by medications. Neuro: Level of Consciousness is awake, alert, obeys commands, Oriented to person, place, time, situation. Cardiovascular: Patient's skin is warm and dry. Respiratory: Airway is patent Respiratory effort is even, unlabored, Respiratory pattern is regular, symmetrical. GI: No signs and/or symptoms were reported involving the gastrointestinal system. : No signs and/or symptoms were reported regarding the genitourinary system. Derm: Skin is pale. Musculoskeletal: Circulation, motion, and sensation intact. 20:20 Reassessment: Patient and/or family updated on plan of care and expected duration. Pain ha1 level reassessed. Patient is alert, oriented x 3, equal unlabored respirations, skin warm/dry/pink. 21:20 Reassessment: Patient and/or family updated on plan of care and expected duration. Pain ha1 level reassessed. Patient is alert, oriented x 3, equal unlabored respirations, skin warm/dry/pink. 22:20 Reassessment: Patient and/or family updated on plan of care and expected duration. Pain ha1 level reassessed. Patient is alert, oriented x 3, equal unlabored respirations, skin warm/dry/pink. 23:30 Reassessment: Patient and/or family updated on plan of care and expected duration. Pain ha1 level reassessed. Patient is alert, oriented x 3, equal unlabored respirations, skin warm/dry/pink. 08/13 01:30 Reassessment: eyes closed. Respiratory: Respiratory effort is even, unlabored, ha1 Respiratory pattern is regular, symmetrical. 02:30 Reassessment: eyes closed. Respiratory: Respiratory effort is even, unlabored, ha1 Respiratory pattern is regular, symmetrical. 03:30 Reassessment: eyes closed. Respiratory: Respiratory effort is even, unlabored, ha1 Respiratory pattern is regular, symmetrical. 04:50 Reassessment: Patient and/or family updated on plan of care and expected duration. Pain ha1 level reassessed. Patient is alert, oriented x 3, equal unlabored respirations, skin warm/dry/pink. pain 9/10. notified care provider. 07:40 Reassessment: Patient appears in no apparent distress at this time. Patient and/or db family updated on plan of care and expected duration. Pain level reassessed. Patient is alert, oriented x 3, equal unlabored respirations, skin warm/dry/pink. General: Appears in no apparent distress. comfortable, Behavior is calm, cooperative, appropriate for age, quiet. Neuro: No deficits noted. Level of Consciousness is awake, alert, obeys commands, Oriented to person, place, time, situation, Appropriate for age. 10:03 Reassessment: Patient appears in no apparent distress at this time. No changes from db previously documented assessment. Patient and/or family updated on plan of care and expected duration. Pain level reassessed. Patient is alert, oriented x 3, equal unlabored respirations, skin warm/dry/pink. 12:29 Reassessment: Pt c/o chest pain. Notified ERP. See MAR for orders. ld1 14:36 Reassessment: Patient appears in no apparent distress at this time. No changes from db previously documented assessment. Patient and/or family updated on plan of care and expected duration. Pain level reassessed. Patient is alert, oriented x 3, equal unlabored respirations, skin warm/dry/pink. Patient states symptoms have improved. 18:48 Reassessment: Patient appears in no apparent distress at this time. Patient and/or db family updated on plan of care and expected duration. Pain level reassessed. Patient is alert, oriented x 3, equal unlabored respirations, skin warm/dry/pink. PATIENT TRANSPORTED TO FACILITY BY FACILITY TRANSPORT. Psych: 08/11 14:00 [place] Suicide Severity Screening: In the past month, have you wished you were jl7 or wished you could go to sleep and not wake up? Patient responds "yes." "In the past month, have you actually had any thoughts of killing yourself?" Patient responds "yes." "In your lifetime, have you ever done anything, started to do anything, or prepared to do anything to end your life?" Patient responds "yes." Patient reports suicidal intent within 3 past months. Subjective: Patient's mood is hopeless, Delusions are denied, Hallucinations are denied Having thoughts of suicide. Plan for suicide is With attempt via laceration to left forearm. Objective: Patient is cooperative, Speech is normal, Affect is flat, Patient has mutilated themselves by Laceration to left forearm. Interventions: Searched person for dangerous items. Safety Checks: Door is open. Visitors are present. Patient uses marijuana "rarely". Commitment: Patient will be an involuntary commitment. 08/13 07:15 [place] Suicide Severity Screening: In the past month, have you wished you were db or wished you could go to sleep and not wake up? Patient responds "yes." "In the past month, have you actually had any thoughts of killing yourself?" Patient responds "yes." "In your lifetime, have you ever done anything, started to do anything, or prepared to do anything to end your life?" Patient responds "yes.". Subjective: Patient's mood is hopeless, Delusions are denied, Hallucinations are denied Having thoughts of suicide. Objective: Patient is cooperative, Speech is normal, Affect is appropriate. Interventions: Removed personal items and placed in bag. Patient placed in hospital gown. Safety Checks: Door is open. Patient uses marijuana. Vital Signs: 08/11 14:15 BP 103 / 70; Pulse 125; Resp 14; Pulse Ox 100% on 4 lpm NC; jl7 14:18 BP 101 / 68; Pulse 123; Resp 15; Temp 97.3; Pulse Ox 95% on 4 lpm NC; Weight 45.36 kg; jl7 Height 5 ft. 8 in. (172.72 cm); 15:30 BP 124 / 71; Pulse 97; Resp 15; Pulse Ox 92% on 4 lpm NC; jl7 16:15 BP 129 / 63; Pulse 107; Resp 15; Pulse Ox 92% on 4 lpm NC; jl7 17:58 BP 129 / 78; Pulse 89; Resp 15; Pulse Ox 100% on 2 lpm NC; jl7 19:15 BP 129 / 65; Pulse 95; Resp 18 S; Pulse Ox 100% on 2 lpm NC; ha1 20:15 BP 125 / 68; Pulse 97; Resp 18 S; Pulse Ox 100% on R/A; ha1 08/12 00:15 BP 125 / 67; Pulse 94; Resp 16 S; Pulse Ox 99% on 2 lpm NC; ha1 02:15 BP 130 / 69; Pulse 90; Resp 16 S; Pulse Ox 99% on 2 lpm NC; ha1 03:15 BP 135 / 70; Pulse 82; Resp 18; Pulse Ox 99% on 2 lpm NC; ha1 04:15 BP 130 / 64; Pulse 80; Resp 18; Pulse Ox 99% ; ha1 07:00 BP 120 / 64; Pulse 99; Resp 18 S; Pulse Ox 100% on R/A; ha1 10:06 BP 140 / 75; Pulse 76; Resp 12; Pulse Ox 100% on 2 lpm NC; mb9 12:19 BP 140 / 65; Pulse 89; Resp 12; Pulse Ox 100% 2 lpm ; mb9 14:36 BP 130 / 59; Pulse 86; Resp 13; Pulse Ox 100% on 2 lpm NC; mb9 15:21 BP 130 / 56; Pulse 81; Resp 13; Pulse Ox 100% on 2 lpm NC; mb9 17:39 BP 132 / 65; Pulse 97; Resp 16; Pulse Ox 100% on 2 lpm NC; mb9 19:20 BP 132 / 64; Pulse 82; Resp 16 S; Pulse Ox 100% on R/A; ha1 19:45 Pulse 77; Resp 18 S; Pulse Ox 100% on R/A; ha1 20:20 BP 131 / 60; Pulse 70; Resp 18 S; Pulse Ox 99% on R/A; ha1 08/13 00:20 BP 122 / 62; Pulse 77; Resp 16 S; Pulse Ox 100% on R/A; ha1 02:20 BP 128 / ???; Pulse 78; Resp 18 S; Pulse Ox 100% on R/A; ha1 03:20 BP 129 / 65; Pulse 77; Resp 18 S; Pulse Ox 100% on R/A; ha1 04:20 BP 128 / 64; Pulse 75; Resp 17 S; Pulse Ox 100% on R/A; ha1 05:00 BP 124 / 59; Pulse 81; Resp 18 S; Pulse Ox 100% on R/A; ha1 05:30 BP 122 / 62; Pulse 78; Resp 16; Pulse Ox 100% on R/A; ha1 08:00 BP 143 / 55; Pulse 69; Resp 18; Temp 98; Pulse Ox 100% on R/A; db 12:00 BP 111 / 61; Pulse 91; Resp 18; Pulse Ox 99% on 2 lpm NC; db 12:29 BP 111 / 61; Pulse 92; Resp 18; Pulse Ox 100% on 2 lpm NC; Pain 8/10; ld1 16:38 Pain 10/10; db 18:47 BP 110 / 68; Pulse 88; Resp 16; Temp 98; Pulse Ox 100% on R/A; db 08/11 14:18 Body Mass Index 15.20 (45.36 kg, 172.72 cm) jl7 ED Course: 08/11 13:51 Patient arrived in ED. ss 13:52 Arm band placed on right wrist. ss 13:53 Pérez Garibay NP is PHCP. pm1 13:54 Andrés Hollins MD is Attending Physician. pm1 14:00 Client placed on continuous cardiac and pulse oximetry monitoring. NIBP monitoring jl7 applied. 14:00 Warm blanket given. jl7 14:00 Initial lab(s) drawn, by or, sent to lab. Inserted saline lock: 20 gauge in right jl7 forearm, using aseptic technique. Blood collected. 14:18 Oseguera, Jahala, RN is Primary Nurse. jl7 14:24 Triage completed. jl7 16:17 Patient has correct armband on for positive identification. Bed in low position. Call ss light in reach. Side rails up X 1. 16:30 Assist provider with laceration repair on palmar aspect of left forearm that was jl7 between 2.6 to 7.5 cm using sutures. Set up tray. Performed by Pérez Garibay PUMP INSTALLATION AND SERVICER Dressed with 4X4s, Neosporin, Patient tolerated well. 19:15 Safety Checks: Personal items have been removed. Sitter present at this time. ha1 19:15 No apparent distress. transfer approval from receiving facility. ha1 19:15 Noise minimized. ha1 19:22 Chest Single View XRAY In Process Unspecified. EDMS 08/12 10:38 paged out the screener hand stonecutter from the [facility]. eb 20:55 Attending Physician role handed off by Andrés Hollins MD sp3 20:55 Colleen Jorge MD is Attending Physician. sp3 08/13 18:49 IV discontinued, intact, bleeding controlled, No redness/swelling at site. db Administered Medications: 08/11 15:01 CANCELLED (Physician Discretion): NS 0.9% 500 ml IV at bolus once pm1 15:12 Drug: NS 0.9% 1000 ml Route: IV; Rate: 1 bolus; Site: right forearm; jl7 16:30 Follow up: Response: No adverse reaction; IV Status: Completed infusion; IV Intake: jl7 1000ml 16:25 Drug: Bupivacaine (0.5 %) 10 ml {Note: administered by ERP.} Volume: 10 ml; Route: jl7 Infiltration; 18:34 Follow up: Response: No adverse reaction jl7 16:25 Drug: Lidocaine (1 %) 5 ml {Note: administered by ERP.} Volume: 5 ml; Route: jl7 Infiltration; 18:34 Follow up: Response: No adverse reaction jl7 17:01 Drug: Tetanus-Diphtheria Toxoid Adult 0.5 ml {Laundry Or Dry Cleaners 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 Exp: jl7 05/09/2023. Lot #: [id number]. } Route: IM; Site: left deltoid; 17:21 Follow up: Response: No adverse reaction jl7 17:21 Drug: NS 0.9% 500 ml Route: IV; Rate: bolus; Site: right forearm; jl7 18:34 Follow up: Response: No adverse reaction; IV Status: Completed infusion; IV Intake: jl7 500ml 08/12 14:24 Drug: morphine 1 mg Route: IVP; Infused Over: 2 mins; Site: right forearm; mb9 19:16 Follow up: Response: No adverse reaction mb9 19:24 Drug: morphine 1 mg Route: IVP; Infused Over: 2 mins; Site: right forearm; ha1 19:45 Follow up: Response: No adverse reaction; Pain is decreased; RASS: Alert and Calm (0) ha1 08/13 00:15 Drug: Zofran (Ondansetron) 4 mg Route: IVP; Site: right forearm; ha1 00:17 Drug: morphine 2 mg Route: IVP; Infused Over: 4 mins; Site: right forearm; ha1 00:42 Follow up: Response: No adverse reaction; Pain is decreased; RASS: Alert and Calm (0) ha1 04:59 Drug: morphine 2 mg Route: IVP; Infused Over: 4 mins; Site: right forearm; ha1 09:46 Follow up: Response: No adverse reaction db 09:46 Drug: morphine 2 mg Route: IVP; Infused Over: 4 mins; Site: right forearm; db 18:50 Follow up: Response: No adverse reaction db 12:29 Drug: morphine 2 mg Route: IVP; Infused Over: 4 mins; Site: right wrist; ld1 18:50 Follow up: Response: No adverse reaction db 16:38 Drug: morphine 15 mg Route: PO; db 18:50 Follow up: Response: No adverse reaction db Medication: 08/11 17:59 Vaccine Information Statement (VIS) provided today. Questions and/or concerns jl7 addressed. VIS edition date: March 21, 2021. Intake: 16:30 IV: 1000ml; Total: 1000ml. jl7 18:34 IV: 500ml; Total: 1500ml. jl7 Output: 08/13 11:03 Urine: 400ml (Voided); Total: 400ml. db Outcome: 08/11 17:58 ER care complete, transfer ordered by MD. pm1 08/13 15:41 Discharge ordered by sd2 18:49 Discharged to group home. Transfer form completed. db 18:49 Condition: stable 18:49 Discharge instructions given to patient, group home, Instructed on discharge instructions, follow up and referral plans. 18:51 Patient left the ED. db Signatures: Dispatcher [employer] EDMS Shakira Church, RN RN Yesenia Cohen, RN RN ph Pérez Garibay, PUMP INSTALLATION AND SERVICER PUMP INSTALLATION AND SERVICER pm1 Willie Oseguera RN RN jl7 Yaa Acosta Lauren RN RN ld1 Colleen Jorge MD MD sp3 Alisia Steinberg MD MD sd2 Janet Brown RN RN ha1 Ritika Berman RN RN Brianne Clinton RN RN mb9 Corrections: (The following items were deleted from the chart) 08/12 02:11 00:15 Reassessment: Patient and/or family updated on plan of care and expected ha1 duration. Pain level reassessed. Patient is alert, oriented x 3, equal unlabored respirations, skin warm/dry/pink. ha1 02:13 08/11 23:15 Reassessment: Patient and/or family updated on plan of care and expected ha1 duration. Pain level reassessed. Patient is alert, oriented x 3, equal unlabored respirations, skin warm/dry/pink. Patient denies pain at this time. ha1 08/12 03:29 01:15 Respiratory: Airway is patent Respiratory effort is even, unlabored, Respiratory ha1 pattern is regular, symmetrical, ha1 10:00 07:15 Reassessment: Pt AAOx4. Airway patent. Respirations are even and unlabored. Skin mb9 is pale, cool, and dry. Suicide precautions placed. Sitter at bedside. Pt denies any suicidal ideation mb9 10:01 09:15 Reassessment: Suicide precautions placed. Sitter at bedside. Pt denies any mb9 suicidal ideation mb9 14:38 12:15 Reassessment: Pt AAOx4. Airway patent. Respirations are even and unlabored. Skin mb9 is cool, pale and dry. Pt denies any suicidal ideation. Sitter present. Suicidal precautions in place. mb9 15:21 15:14 Reassessment: pt currently sleeping. Airway is patent. Respirations are even and mb9 unlabored. Skin is cool, pale, and dry. Rhythm is regular mb9 17:38 15:15 Reassessment: pt currently sleeping. Airway is patent. Respirations are even and mb9 unlabored. Skin is cool, pale, and dry. Rhythm is regular. Sitter at bedside mb9 19:28 13:15 Reassessment: Pt AAOx4. Airway patent. Respirations are even and unlabored. Skin mb9 is cool, pale and dry. Pt denies any suicidal ideation. Sitter present. Suicidal precautions in place. mb9 20:55 04:15 Respiratory: Respiratory effort is even, unlabored, Respiratory pattern is ha1 regular, symmetrical, ph 20:55 06:15 Reassessment: Patient and/or family updated on plan of care and expected ha1 duration. Pain level reassessed. Patient is alert, oriented x 3, equal unlabored respirations, skin warm/dry/pink. ph 08/13 01:58 08/12 07:00 BP 120 / 64; Pulse 99bpm; Resp 18bpm; Spontaneous; Pulse Ox 100% RA; ph ha1 08/13 06:50 00:30 Reassessment: eyes closed ha1 ha1 06:50 00:30 Respiratory: Respiratory effort is even, unlabored, Respiratory pattern is ha1 regular, symmetrical, ha1 07:32 08/12 00:15 Reassessment: eyes closed ha1 ha1
--- NOTE | 2022-08-11 19:37 | RAD REPORT ---
EXAM DESCRIPTION: RAD - Chest Single View - 08/11/2022 7:21 pm CLINICAL HISTORY: COPD COMPARISON: <Comparisons> FINDINGS: Lines: None. Lungs: Patchy airspace disease in the right upper lobe and left lung base. This similar to 08/05/2022 . Pleural: No significant pleural effusions or pneumothorax. Cardiac: The heart size is within normal limits. Mediastinum: Within normal limits. Bones: No acute fractures. Other: None IMPRESSION: Unchanged right upper lobe and left basilar airspace disease that remains concerning for pneumonia. Continued imaging follow-up is recommended to ensure resolution.
[2022-08-11 20:24] LABS: Blood Morphology Comment NOT SEEN (NOT SEEN); Platelet Estimate ADEQ; White Blood Cell Scan OK (OK)
[2022-08-12 07:16] LABS: Absolute Lymphocytes (CBC) 1.6 K/uL (0.7-4.9); Hematocrit 22.3 % (39.6-49.0); MCV 85.4 fL (80-100); MPV 8.2 fL (7.6-11.3); RBC Red Blood Cell Count 2.61 M/uL (4.33-5.43)
[2022-08-12] MEDS ORDERED: MORPHINE 2 MG/ML SYR ONE ×2 (14:19→19:22)
[2022-08-12 22:56] LABS: Urine Blood Trace-intact (Negative); Urine Glucose Negative (Negative); Urine Protein 1+ (Negative); Urine Specific Gravity >=1.030 (1.005-1.030); Urine pH 5.5 (5.0-7.0)
[2022-08-12 23:19] LABS: Barbiturates NEGATIVE (NEGATIVE); Benzodiazepines NEGATIVE (NEGATIVE); Cocaine NEGATIVE (NEGATIVE); METHAMPHETAM NEGATIVE (NEGATIVE); Methadone NEGATIVE (NEGATIVE); Opiates POSITIVE (NEGATIVE); Phencyclidine NEGATIVE (NEGATIVE); THC Cannibis NEGATIVE (NEGATIVE)
[2022-08-13] MEDS ORDERED: MORPHINE 2 MG/ML SYR ONE ×4 (00:07→12:27)
[2022-08-13] MEDS ORDERED: MORPHINE 15 MG IR TAB PO ONE (16:40)
--- NOTE | 2022-08-13 17:49 | EKG ---
Test Date: 2022-08-11 Test Time: 18:45:26 Etl [employer] Developer: MEASUREMENT RESULTS: Intervals: Rate: 100 TN: 112 QRSD: 86 QT: 370 QTc: 477 [place]: P: 83 TN: 112 QRS: 78 T: 73 INTERPRETIVE STATEMENTS: Normal sinus rhythm Normal ECG Compared to ECG 08/05/2022 14:45:01 Atrial abnormality no longer present Electronically Signed On 08-13-22 17:45:35 ACCOUNTING PROFESSIONAL by Rj Guzman
--- NOTE | 2022-08-13 17:49 | EKG ---
Test Date: 2022-08-11 Test Time: 18:46:48 Thread Inspector: MEASUREMENT RESULTS: Intervals: Rate: 100 MS: 114 QRSD: 86 QT: 366 QTc: 472 [place]: P: 84 MS: 114 QRS: 78 T: 76 INTERPRETIVE STATEMENTS: Normal sinus rhythm Right atrial enlargement Nonspecific ST abnormality Abnormal ECG Compared to ECG 08/11/2022 18:45:26 Atrial abnormality now present ST (T wave) deviation now present Electronically Signed On 08-13-22 17:45:34 TITLE CAMERA OPERATOR by Rj Guzman
[2022-08-13 20:28] VITALS: TEMP 98
[2022-08-13 20:30] VITALS: O2SAT 100
[2022-08-13 20:32] VITALS: BP 110/68
== END 2022-08-13 18:51 ==
LOC: ER 13:50
PROC: 0JQH0ZZ Repair Left Lower Arm Subcutaneous Tissue and Fascia, Open Approach (ICD-10-PCS; principal; 2022-08-11)
DX: S51.812A Laceration without foreign body of left forearm, initial encounter (principal); X78.9XXA Intentional self-harm by unspecified sharp object, initial encounter; Z23 Encounter for immunization; Z88.8 Allergy status to other drugs, medicaments and biological substances; F17.210 Nicotine dependence, cigarettes, uncomplicated; Z20.822 Contact with and (suspected) exposure to COVID-19
CPT/HCPCS: 12002; 93005 ×2; 85025 ×2; 80048; 36415; 80320; 80329 ×2; 85610; 80076; 85730; 85018; 81003; 80307; 71045; 90471; 99285; 87811; J2001; J2270 ×4; J7040; J7030; J2405